=== PATIENT | male | born 1990 | race Hispanic/Latino ===

== ENCOUNTER → 2025-04-04 | Outpatient (CLI) | payer BC ==
[2025-04-04 22:51] VITALS: PULSE 70; RESP 16
[2025-04-04 23:30] VITALS: PULSE 68; RESP 18
[2025-04-05] VITALS (10 sets, daily range): PULSE 60–72; RESP 10–18
--- NOTE | 2025-04-05 03:58 | NUR ---
TOPIRAMATE 25MG Addendum: 04/05/25 at 0359 by EDGARDO OLSEN Amended: Links added.
== END | disposition home or self-care (01) ==
LOC: SLP 20:49
PROVIDERS: ATTEND Family Medicine
DX: G44.011 Episodic cluster headache, intractable (principal); R29.818 Other symptoms and signs involving the nervous system
CPT/HCPCS: 95810